=== PATIENT | female | born 1970 | race Caucasian/White ===

== ENCOUNTER → 2023-09-04 13:59 | Outpatient (REF) | payer BC, SELFPAY | LOC: WDC 13:59 | PROVIDERS: ATTENDING PHYSICIAN Registered Nurse; FAMILY PHYSICIAN Family Medicine | DX: Z12.31 Encounter for screening mammogram for malignant neoplasm of breast (principal) | CPT/HCPCS: 77063; 77067 ==

== ENCOUNTER 2024-02-16 09:43 | Emergency (ER) | payer BC, SELFPAY ==
[2024-02-16 09:48] VITALS: BP 120/80
[2024-02-16 10:46] VITALS: BMI 22.0
--- NOTE | 2024-02-16 11:09 | ED.GENMED ---
History of Present Illness
General
Chief Complaint: Musculo-Skeletal Complaint
Time Seen by Provider: 02/16/24 10:57
History of Present Illness
History of Present Illness:
54-year-old female presents to the emergency department for ration of right shoulder pain for the past 3 days. Has had this pain in the past due to sleeping with her arm overhead, denies any recent trauma or injuries.
Past History
Past History
ED Past Medical History: None
ED Past Surgical History: None
Social History
Tobacco: Non-smoker
Living: with family
Review of Systems
Review of Systems
Allergies reviewed?: Yes
All Other Systems: ROS reviewed and negative except as documented in HPI and ROS
Phy Exam
Physical Exam
Physical Exam:
GEN: Well appearing, NAD, WDWN
HEENT: Oral mucosa moist, no scleral icterus
Cardiac: Regular rate
Lung: No respiratory distress, no tachypnea
MSK: No gross deformity or injuries. Diffuse tenderness to the right shoulder, no bony deformities, no ecchymosis, profoundly limited range of motion secondary to pain
Skin: Good color, no pallor or jaundice, no rashes
Neuro: AO x3, moves all extremities freely
Psych: Calm, cooperative
Course
Orders/Labs/Results
Orders:
Orders
02/16/24 11:08
CR Shoulder - Right Min 2 View Urgent
Comment:
Reason For Exam: non traumatic pain
02/16/24 11:12
Triamcinolone Acetonide [Kenalog-10] 5 mg INTRAARTIC NOW STA
Vital Signs
Initial and Last Documented VS:
Initial Vital Signs
Temp Pulse Resp BP Pulse Ox
98.4 F 61 18 120/80 100
02/16/24 09:48 02/16/24 09:48 02/16/24 09:48 02/16/24 09:48 02/16/24 09:48
Last Documented Vital Signs
Temp Pulse Resp BP Pulse Ox
98.4 F 60 12 120/76 100
02/16/24 09:48 02/16/24 12:17 02/16/24 12:17 02/16/24 12:17 02/16/24 12:17
MDM/Problems Addressed
MDM/Problems Addressed:
Patient's x-ray reveals calcific tendinitis which is likely the etiology for her symptoms. An intra-articular right shoulder injection with 10 mg of triamcinolone and 2 cc of 1% lidocaine was administered, tolerated well without complications.
Recommend orthopedic follow-up
*Critical Care Note
Total Time (30-74mins, 75-104mins- exclusive of procedures): Not Applicable
ED Attending Note
-
Portions of this chart may have been created with voice recognition software.� Occasional wrong word or��sound alike� substitutions may have occurred due to the inherent limitations of voice recognition software.
Discharge Plan
Departure
Patient Disposition: Home (Routine Discharge)
Date of Disposition: 02/16/24
Time of Disposition: 12:08
Patient with high blood pressure during this ER visit?: No
Discharge Problem:
Acute pain of right shoulder, Calcific tendinitis
Instructions: Calcific Tendinopathy of the Shoulder (DC)
Prescriptions:
New
oxycodone 5 mg tablet
5 mg PO Q8H PRN (Reason: Pain) Qty: 10 0RF
No Action
cephalexin 500 MG capsule
500 mg PO QID Qty: 20 0RF
azithromycin 250 MG tablet
250 mg PO DAILY Qty: 6 0RF
Rx Instructions:
Take 2 tablets on day one. Then 1 tablet on days two-five.
prednisone 20 MG tablet
40 mg PO DAILY Qty: 10 0RF
albuterol sulfate 1 PUFF HFA aerosol inhaler
1 puff inhalation R QID Qty: 1 0RF
Referrals:
Benjamin Mckeon MD [Family Provider] -
Brody Rojas MD [Active] -
Activity Restrictions/Additional Instructions:
ice the shoulder often to reduce pain
You may continue meloxicam
Follow up with Orthopedics
Try to become too reliant on the sling, as this will stiffen the shoulder even further
Do arm pendulums and wall finger crawls twice daily if pain allows
Interventions
Interventions:
*Risk Screen - Suicide Last Done: 02/16/24 09:48
*General Assessment Last Done: 02/16/24 09:48
*Neglect/Abuse Screening Last Done: 02/16/24 09:48
*Nursing Disposition Last Done: 02/16/24 12:18
ED-Musculoskeletal Assessment Last Done: 02/16/24 10:46
Discharge Date and Time
Discharge Date/Time: 02/16/24 12:25
Print Language: ROMANIAN
[2024-02-16] MEDS: KENALOG-10 5 MG INTRAARTIC (11:33)
[2024-02-16 12:17] VITALS: BP 120/76
== END 2024-02-16 12:25 | disposition home or self-care (01) ==
LOC: EMR 09:43
PROVIDERS: EMERGENCY PHYSICIAN Emergency Medicine; FAMILY PHYSICIAN Family Medicine
DX: M75.31 Calcific tendinitis of right shoulder (principal); M25.511 Pain in right shoulder
CPT/HCPCS: 99284; 96374; 73030

== ENCOUNTER 2024-03-12 06:16 | Outpatient (RCR) | payer BC, SELFPAY | END 2024-03-12 23:59 | disposition home or self-care (01) | LOC: RPT 06:16 | PROVIDERS: ATTENDING PHYSICIAN Orthopaedic Surgery Hand Surgery; FAMILY PHYSICIAN Family Medicine | DX: M25.511 Pain in right shoulder (principal); Z73.6 Limitation of activities due to disability; M65.221 Calcific tendinitis, right upper arm | CPT/HCPCS: 97110; 97140; 97162 ==

== ENCOUNTER 2024-04-02 09:00 | Outpatient (RCR) | payer BC, SELFPAY | END 2024-04-02 23:59 | disposition home or self-care (01) | LOC: RPT 09:00 | PROVIDERS: ATTENDING PHYSICIAN Orthopaedic Surgery Hand Surgery; FAMILY PHYSICIAN Family Medicine | DX: M25.511 Pain in right shoulder (principal); Z73.6 Limitation of activities due to disability; M75.31 Calcific tendinitis of right shoulder | CPT/HCPCS: 97010; 97035; 97110; 97112; 97140 ==

== ENCOUNTER 2024-06-15 18:54 | Emergency (ER) | payer BC, SELFPAY ==
[2024-06-15 19:01] VITALS: BP 136/70
[2024-06-15 19:26] LABS: % Eosinophils 3.5 % (0-6); % Immature Granulocytes 0.3 % (0-0.5); % Lymphocytes 37.4 % (20.5-51.1); % Monocytes 7.2 % (1.7-9.3); % Neutrophils 50.6 % (42.2-75.2); Absolute Basophils 0.1 10^3/uL (0-0.2); Absolute Eosinophils 0.3 10^3/uL (0-0.7); Absolute Lymphocytes 3.6 10^3/uL (1.2-3.4); Absolute Monocytes 0.7 10^3/uL (0.1-0.6); Absolute Neutrophils 4.9 10^3/uL (1.4-6.5); Hematocrit 36.4 % (37.0-47.0); Hemoglobin 12.1 g/dL (12.0-16.0); Mean Corp Hgb Conc. 33.2 g/dL (33.0-37.0); Mean Corpuscular Hgb 31.3 pg (27.0-31.0); Mean Corpuscular Volume 94.3 fL (81.0-99.0); Mean Platelet Volume 9.7 fL (7.4-10.4); Nucleated Red Blood Cells % 0 %; Platelet Count 232 10^3/uL (130-400); Red Blood Cell Count 3.86 10^6/uL (4.20-5.40); Red Cell Dist. Width 12.4 % (11.5-14.5); White Blood Cell Count 9.6 10^3/uL (4.8-10.8)
[2024-06-15 19:44] LABS: ALT (SGPT) 26 U/L (0-35); AST (SGOT) 35 U/L (14-36); Albumin 4.5 g/dl (3.5-5.0); Alkaline Phosphatase 73 U/L (38-126); Blood Urea Nitrogen 18 mg/dl (7-17); Calcium 9.6 mg/dl (8.4-10.2); Carbon Dioxide 28 mmol/L (22-30); Chloride 101 mmol/L (98-107); Glucose 97 mg/dl (70-99); Potassium 4.6 mmol/L (3.5-5.1); Sodium 137 mmol/L (135-145); Total Bilirubin 0.5 mg/dl (0.2-1.3); Total Protein 6.6 g/dl (6.3-8.2); eGFR > 60.00
[2024-06-15 19:45] LABS: Acetaminophen < 10 ug/ml (10-30)
--- NOTE | 2024-06-15 22:24 | ED.GENMED ---
History of Present Illness
General
Chief Complaint: Overdose Unintentional
Source: patient
Exam Limitations: none
Time Seen by Provider: 06/15/24 22:15
Nursing documentation reviewed up to this point in time: agreed with
History of Present Illness
History of Present Illness:
54-year-old female who had a shoulder surgery 2 days ago accidentally took 2500 mg of Tylenol x 4 yesterday on 1�31 to total 10,000 mg and then took 2 doses today 2500 and then 1000 mg to total 3500 mg. Patient's last dose of Tylenol was 10:50 AM
today. She had a little bit of nausea this morning. Patient ended up calling poison control and they told her to come in. Patient did not realize that the tablets were 500 mg rather than 200 mg and she had been taking 5 tablets thinking that she
was taking 1000 mg but instead was taking 2500 mg. Patient has not had any vomiting, confusion, fever. Her pain is controlled.
Past History
Past History
ED Past Medical History: None
ED Past Surgical History: None
Social History
Tobacco: Non-smoker
Living: with family
Review of Systems
Review of Systems
Allergies reviewed?: Yes
All Other Systems: Not applicable
Phy Exam
Physical Exam
Physical Exam:
GENERAL: Alert , in no apparent distress
EYEs;: no scleral icterus
CARDIAC: Regular rate and rhythm .
LUNGS: Clear breath sounds bilaterally, no acute respiratory distress, no wheezes/rales/rhonchi
ABDOMEN: Soft, without focal tenderness, no r/g, no cvat, normal bowel sounds
NEUROLOGICAL: Alert and oriented, no focal neuro deficits
SKIN: Warm and dry, skin intact.
MUSCULOSKELETAL: Right shoulder in a sling, neurovascularly intact
sling not removed for exam
PSYCH: Normal and appropriate interaction.
Course
Orders/Labs/Results
Orders:
Orders
06/15/24 19:16
Acetaminophen Urgent
Complete Blood Count/With Diff Urgent
Comprehensive Metabolic Panel Urgent
Abnormal Lab Results
06/15/24
19:16
RBC 3.86 L 10^6/uL
(4.20-5.40)
Hct 36.4 L %
(37.0-47.0)
MCH 31.3 H pg
(27.0-31.0)
Absolute Lymphs (auto) 3.6 H 10^3/uL
(1.2-3.4)
Absolute Monos (auto) 0.7 H 10^3/uL
(0.1-0.6)
BUN 18 H mg/dl
(7-17)
Acetaminophen < 10 L ug/ml
(10-30)
06/15/24 19:16
06/15/24 19:16
Vital Signs
Initial and Last Documented VS:
Initial Vital Signs
Temp Pulse Resp BP Pulse Ox
36.5 C 60 22 136/70 100
06/15/24 19:01 06/15/24 19:01 06/15/24 19:01 06/15/24 19:01 06/15/24 19:01
Last Documented Vital Signs
Temp Pulse Resp BP Pulse Ox
36.7 C 57 25 137/88 98
06/15/24 22:32 06/15/24 22:32 06/15/24 22:32 06/15/24 22:32 06/15/24 22:32
MDM/Problems Addressed
Differential Diagnosis Includes:
Tylenol overdose
MDM/Problems Addressed:
54-year-old female accidental Tylenol overdose, ingested 5 tablets 500 mg each thinking that they were 200 mg tablets to total her normal dose of 1000 mg but instead was accidentally taking 2500 milligrams. She took a total of 10,000 mg yesterday
and 3500 today before realizing. She spoke with poison control and was referred here. She had minimal nausea which resolved. Her pain is controlled. On exam she is well-appearing, stable vital signs, no abdominal tenderness, neurovascularly
intact on her right arm where she had sort shoulder surgery. Her Tylenol level was less than 10 and her LFTs were normal. Discussed with ED attending as well as the nurse in charge spoke with poison control who cleared her. Discharged home
*Critical Care Note
Total Time (30-74mins, 75-104mins- exclusive of procedures): Not Applicable
ED Attending Note
-
Portions of this chart may have been created with voice recognition software.� Occasional wrong word or��sound alike� substitutions may have occurred due to the inherent limitations of voice recognition software.
Discharge Plan
Departure
Patient Disposition: Home (Routine Discharge)
Date of Disposition: 06/15/24
Time of Disposition: 22:30
Patient with high blood pressure during this ER visit?: No
Condition: Fair
Covid-19: Not Applicable
Discharge Problem:
Accidental drug ingestion
Instructions: Accidental Overdose (DC)
Prescriptions:
No Action
cephalexin 500 MG capsule
500 mg PO QID Qty: 20 0RF
azithromycin 250 MG tablet
250 mg PO DAILY Qty: 6 0RF
Rx Instructions:
Take 2 tablets on day one. Then 1 tablet on days two-five.
prednisone 20 MG tablet
40 mg PO DAILY Qty: 10 0RF
albuterol sulfate 1 PUFF HFA aerosol inhaler
1 puff inhalation R QID Qty: 1 0RF
oxycodone 5 mg tablet
5 mg PO Q8H PRN (Reason: Pain) Qty: 10 0RF
Activity Restrictions/Additional Instructions:
You were medically cleared for Tylenol ingestion. There seems to be no signs of an overdose. Do not exceed 4000 mg of Tylenol in a 24-hour period.
Return for any concerns
Interventions
Interventions:
*Risk Screen - Suicide Last Done: 06/15/24 19:01
*Neglect/Abuse Screening Last Done: 06/15/24 19:01
*Nursing Disposition Last Done: 06/15/24 22:39
Discharge Date and Time
Discharge Date/Time: 06/15/24 22:40
Print Language: BELARUSIAN
[2024-06-15 22:32] VITALS: BP 137/88
== END 2024-06-15 22:40 | disposition home or self-care (01) ==
LOC: EMR 18:54
PROVIDERS: Student in an Organized Health Care Education/Training Program; EMERGENCY PHYSICIAN Emergency Medicine; FAMILY PHYSICIAN Family Medicine
DX: T39.1X1A Poisoning by 4-Aminophenol derivatives, accidental (unintentional), initial encounter (principal)
CPT/HCPCS: 99283; 80053; 80143; 85025

== ENCOUNTER 2024-07-12 14:09 | Outpatient (RCR) | payer BC, SELFPAY | END 2024-07-12 23:59 | disposition home or self-care (01) | LOC: RPT 14:09 | PROVIDERS: ATTENDING PHYSICIAN Orthopaedic Surgery Hand Surgery; FAMILY PHYSICIAN Family Medicine | DX: Z47.89 Encounter for other orthopedic aftercare (principal); Z73.6 Limitation of activities due to disability; M25.511 Pain in right shoulder; M62.81 Muscle weakness (generalized) | CPT/HCPCS: 97010; 97110; 97140; 97161 ==

== ENCOUNTER 2024-08-12 17:02 | Outpatient (RCR) | payer BC, SELFPAY | END 2024-08-12 23:59 | disposition home or self-care (01) | LOC: RPT 17:02 | PROVIDERS: ATTENDING PHYSICIAN Orthopaedic Surgery Hand Surgery; FAMILY PHYSICIAN Family Medicine | DX: Z47.89 Encounter for other orthopedic aftercare (principal); Z73.6 Limitation of activities due to disability; M25.511 Pain in right shoulder; M62.81 Muscle weakness (generalized) | CPT/HCPCS: 97010; 97110; 97112; 97140 ==

== ENCOUNTER → 2024-09-04 12:35 | Outpatient (REF) | payer BC, SELFPAY | LOC: WDC 12:35 | PROVIDERS: ATTENDING PHYSICIAN Obstetrics & Gynecology; FAMILY PHYSICIAN Family Medicine | DX: Z12.31 Encounter for screening mammogram for malignant neoplasm of breast (principal) | CPT/HCPCS: 77063; 77067 ==

== ENCOUNTER → 2024-11-06 13:27 | Outpatient (REF) | payer BC, SELFPAY | LOC: MRI 3T 13:27 | PROVIDERS: ATTENDING PHYSICIAN Orthopaedic Surgery Hand Surgery; FAMILY PHYSICIAN Family Medicine | DX: M25.511 Pain in right shoulder (principal) | CPT/HCPCS: 23350; 73040; 73222 ==

== ENCOUNTER → 2025-04-09 12:54 | Outpatient (REF) | payer BC, SELFPAY | LOC: WDC 12:54 | PROVIDERS: ATTENDING PHYSICIAN Obstetrics & Gynecology; FAMILY PHYSICIAN Family Medicine | DX: R92.333 Mammographic heterogeneous density, bilateral breasts (principal) | CPT/HCPCS: 76641 ==